=== PATIENT | female | born 1960 | race Caucasian/White ===

== ENCOUNTER 2019-08-17 16:21 | Inpatient (IN) ==
[2019-08-17 16:49] LABS: BASO# 0.01 X1000 (0.0-0.2); BASO% 0.1 % (0.0-0.8); EOS# 0.15 X1000 (0.0-0.7); EOS% 1.5 % (0.0-10.0); HEMOGLOBIN 10.1 g/dL (12.0-16.0); IMM GRAN# 0.08 X1000 (0.0-0.04); IMM GRAN% 0.8 % (0.0-0.5); LYMPH# 1.38 X1000 (1.2-3.4); LYMPH% 13.4 % (20.5-51.1); MCHC 33.7 g/dL (33-37); MONO# 0.72 X1000 (0.11-0.59); MPV 9.6 FL (7.4-10.4); NEUT# 7.96 X1000 (1.4-6.5); NEUT% 77.2 % (42.2-75.2); PLT 299 X1000 (130-400); RBC 3.26 XMIL (4.2-5.4); RDW 11.7 % (11.5-14.5)
--- NOTE | 2019-08-17 17:00 | Diag Imaging Result Doc PS360 ---
CHEST-2 VIEWS - 08/17/2019 INDICATION: chest pain COMPARISON: None FINDINGS: There is dense infiltrate in the right lower lobe. There is probably also some patchy infiltrate in the left lower lobe. Heart size is normal. Pulmonary vascularity is normal. No pneumothorax or pleural effusion. IMPRESSION: Bilateral basilar infiltrates compatible with bronchopneumonia. Electronically signed by Miguel Angel Contreras 08/17/2019 4:58 PM
[2019-08-17 17:05] LABS: INR 1.18; PROTIME 15.2 Seconds (11.0-16.0); PTT 41.5 Seconds (22.3-41.8)
[2019-08-17 17:12] LABS: AGAP 16; ALB/GLOB RATIO 0.9; ALBUMIN 3.6 g/dL (3.5-5.0); ALKALINE PHOSPHATASE 159 U/L (32-104); BUN 8 mg/dL (8-22); CALCIUM 9.5 mg/dL (8.8-10.2); CHLORIDE 95 mmol/L (98-107); CK PROFILE 45 U/L (24-173); COSMO 268; CREATININE 0.8 mg/dL (0.5-0.9); ESTIMATED GFR > 60; GLUCOSE 153 mg/dL (70-104); GOT 35 U/L (10-30); GPT 28 U/L (10-36); POTASSIUM 3.1 mmol/L (3.5-5.1); SODIUM 133 mmol/L (136-145); TCO2 22 mmol/L (25-35); TOTAL BILIRUBIN 0.57 mg/dL (0.20-1.00); TOTAL PROTEIN 7.6 g/dL (6.3-8.3)
--- NOTE | 2019-08-17 18:23 | ED EKG INTERP ---
This chart was entered by Lawrence Arizmendi Scribe, acting as scribe for Beatriz Mclaughlin MD. EKG Interpretation - EKG Time of EKG reading by physician:: 16:42 EKG Read and Signed by:: Beatriz Mclaughlin EKG Interpretation (*Must complete 3 of following elements*): Normal Rate: 103 Rhythm: sinus tachycardia [place]: normal QRS: normal NH Interval: normal ST Wave: normal Attestation - Physician/ JOVANNA Attestation Patient care was provided by Advanced Practice Provider:: No The physician spent face to face time with patient:: Yes Advanced Practice Provider documentation review:: Supervising physician onsite a nd consulted in the evaluation and care of this patient. The physician did have a face to face encounter with the patient. This chart was documented by the indicated scribe, (Lawrence Arizmendi Scribe) and accurately reflects the services I performed and decisions made by me, Beatriz Mclaughlin MD, as attested by the provider's signature.
[2019-08-17] MEDS ORDERED: ATROVENT NEB INH ONE (18:45)
--- NOTE | 2019-08-17 18:58 | PROVIDER DOCUMENTATION ---
HPI-Respiratory General - General Chief Complaint: Shortness of Breath Stated Complaint: SOB Time Seen by Provider: 08/17/19 18:10 Source: patient - History of Present Illness-Resp Nature of Presenting Problem: 59 yr old F, hx of COPD, presenting after failed outpatient treatment for pneumonia. The pt was recently seen at an outside hospital for SOB and chest pain, and ultimately determined to have right lobe pneumonia. The pt was offered inpatient admission at that hospital, but left AMA due to not being able to smoke. Accompanying discharge paperwork from that hospital show an elevated D- dimer, and subsequent CTA-PE negative for PE but confirming pneumonia. Pt received Rocephin 2 gm and was sent out with Zithromycin 250 mg x 4 days. She presents today because her pleuritic chest pain, and shortness of breath, are worsening. She reports a non-productive shallow cough - she is unable to cough deeper because her chest hurts. Quality of Pain: reports: sharp Severity in ED: reports: moderate Onset/Duration: reports: 3 days ago Timing: reports: still present, getting worse Cough Quality/Degree: reports: moderate, dry cough Modifying Factors: improves with: nothing Associated Symptoms: reports: chest pain/soreness, cough Similar Symptoms Previously?: Yes Recently seen or treated by another doctor?: Yes (treated at an outside facility) Review of Systems - Adult - REVIEW OF SYSTEMS - ADULT Constitutional: reports: no symptoms reported Eyes: reports: no symptoms reported Ears, Nose, Mouth & Throat: reports: no symptoms reported Respiratory: reports: cough, pleurisy, shortness of breath Gastrointestinal: reports: no symptoms reported Genitourinary: reports: no symptoms reported Musculoskeletal: reports: no symptoms reported Neurological: reports: no symptoms reported Past History - Adult - PAST MEDICAL HISTORY-ADULT Review of Records: reports: Nursing Assessment Review Major Childhood Illnesses: reports: denies history Respiratory: reports: COPD Physical Exam-General - PHYSICAL EXAM-ADULT Initial Vital Signs Reviewed: Yes - CONSTITUTIONAL General Appearance: alert, mild distress - EYES Eyes: PERRL/EOMI - HEAD, EARS, NOSE, MOUTH & THROAT HENMT: normocephalic/atraumatic, moist mucous membranes - RESPIRATORY Respiratory: wheezing, other (pleuritic chest pain, chest tender to palpation) - CARDIOVASCULAR Cardiovascular: regular rate, rhythm - GASTROINTESTINAL (ABDOMEN) Abdominal Exam: normal bowel sounds, non tender - SKIN Integumentary: warm/dry - NEUROLOGIC Neurologic: grossly normal - PSYCHIATRIC Psych/Mental Status: oriented x 3, anxious Progress - PLAN OF CARE/RESULTS Progress/Plan/Lab Results: Vital Signs - 8 hr 08/17/19 16:25 08/17/19 18:46 08/17/19 19:05 Temperature 97.6 F Pulse Rate 112 H 98 H 87 Respiratory Rate 22 18 16 Blood Pressure 119/74 132/82 O2 Sat by Pulse Oximetry 93 L Laboratory Results - last 24 hr 08/17/19 08/17/19 08/17/19 16:30 16:30 16:30 WBC 10.30 RBC 3.26 L Hgb 10.1 L Hct 30.0 L MCV 92.0 MCH 31.0 MCHC 33.7 RDW Std Deviation 11.7 Plt Count 299 MPV 9.6 Immature Gran % (Auto) 0.8 H Neut % (Auto) 77.2 H Lymph % (Auto) 13.4 L [place] % (Auto) 7.0 Eos % (Auto) 1.5 Baso % (Auto) 0.1 Immature Gran # (Auto) 0.08 H Neut # (Auto) 7.96 H Lymph # (Auto) 1.38 [place] # (Auto) 0.72 H Eos # (Auto) 0.15 Baso # (Auto) 0.01 PT INR PTT (Actin FS) Sodium 133 L Potassium 3.1 L Chloride 95 L Carbon Dioxide 22 L Anion Gap 16 BUN 8 Creatinine 0.8 Estimated GFR/1.73 m2 > 60 BUN/Creatinine Ratio 10 Glucose 153 H Calculated Osmolality 268 Calcium 9.5 Total Bilirubin 0.57 AST 35 H ALT 28 Alkaline Phosphatase 159 H Creatine Kinase 45 Troponin T Bml-O-Settzmalpdz Pept 269 H Total Protein 7.6 Albumin 3.6 Globulin 4.0 Albumin/Globulin Ratio 0.9 08/17/19 08/17/19 16:30 16:30 WBC RBC Hgb Hct MCV MCH MCHC RDW Std Deviation Plt Count MPV Immature Gran % (Auto) Neut % (Auto) Lymph % (Auto) [place] % (Auto) Eos % (Auto) Baso % (Auto) Immature Gran # (Auto) Neut # (Auto) Lymph # (Auto) [place] # (Auto) Eos # (Auto) Baso # (Auto) PT 15.2 INR 1.18 PTT (Actin FS) 41.5 Sodium Potassium Chloride Carbon Dioxide Anion Gap BUN Creatinine Estimated GFR/1.73 m2 BUN/Creatinine Ratio Glucose Calculated Osmolality Calcium Total Bilirubin AST ALT Alkaline Phosphatase Creatine Kinase Troponin T < 0.010 Las-M-Lgopazyipwb Pept Total Protein Albumin Globulin Albumin/Globulin Ratio Orders Category Date Time Status Admit - [facility] Routine AdmDCTranf 08/17/19 20:30 Active Activity - Up with Assistance ORDERED Care 08/17/19 20:30 Active Cardiac Monitoring DIRECTED Care 08/17/19 16:34 Active DVT/PE Risk Assess/Protocol [QM] ORDERED Care 08/17/19 20:30 Active Intake and Output-Strict ORDERED Care 08/17/19 20:30 Active Notify MD if DIRECTED Care 08/17/19 20:31 Active Saline Loc NOW Care 08/17/19 16:34 Active Vital Signs Order Q4H Care 08/17/19 20:30 Active Z-Document. for Tele Applied ORDERED Care 08/17/19 20:31 Active Regular Diet Diet 08/17/19 20:31 Active CHEST-2 VIEWS [RAD] Stat Exams 08/17/19 16:34 Completed BLOOD CULTURE [BLDCUL] Routine Lab 08/18/19 06:00 Uncollected BMP [BASIC METABOLIC PANEL] [CHEM] Routine Lab 08/18/19 06:00 Uncollected CBC WITH DIFF [HEME] Routine Lab 08/18/19 06:00 Ordered CBC WITH ELECTRONIC DIFF [HEME] Stat Lab 08/17/19 16:30 Completed CK PROFILE [SP CHEM] Stat Lab 08/17/19 16:30 Completed COMPREHENSIVE METABOLIC PANEL [CHEM] Stat Lab 08/17/19 16:30 Completed LEGIONELLA AG URINE [FORT POLK] Routine Lab 08/17/19 19:59 Received PRO B-NATRIURETIC PEPTIDE Stat Lab 08/17/19 16:30 Completed PROTIME WITH INR [COAG] Stat Lab 08/17/19 16:30 Completed PTT [COAG] Stat Lab 08/17/19 16:30 Completed SPUTUM CULTURE WITH GRAM STAIN [RM] Stat Lab 08/17/19 19:51 Uncollected STREP PNEUMO AG URINE [FORT POLK] Routine Lab 08/17/19 19:59 Received TROPONIN T Stat Lab 08/17/19 16:30 Completed URINE DRUG SCREEN Routine Lab 08/17/19 19:51 Received 0.9% Sodium Chloride Inj [Ns] 1,000 ml Med 08/17/19 21:00 Active IV 75 mls/hr 0.9% Sodium Chloride Inj [Ns] 1,000 ml Med 08/17/19 19:07 Discontinued IV 999 mls/hr Acetaminophen [Tylenol] Med 08/17/19 20:29 Ordered 650 mg PO Q6H PRN PRN Acetylcysteine 20% [Mucomyst 20%] Med 08/17/19 21:00 Ordered 3 ml INH BID Albuterol 2.5MG/Ipratrop 0.5MG [Duoneb (A & A)] Med 08/17/19 23:30 Active 3 ml INH RTQ4H.WA Azithromycin [Zithromax] Med 08/17/19 20:00 Active 500 mg PO DAILY CefTRIAXONE [Rocephin] 1 gm Med 08/17/19 20:00 Active 0.9% Sodium Chloride Inj [Ns] 50 ml IV Q24H Diazepam [Valium] Med 08/17/19 21:00 Active 5 mg PO BID Enoxaparin [Lovenox] Med 08/17/19 20:30 Active 40 mg SUBQ Q24H Ipratropium [place] Neb [Atrovent Neb] Med 08/17/19 18:45 Discontinued 0.5 mg INH NOW ONE Ketorolac [Toradol] Med 08/17/19 19:07 Discontinued 60 mg IM NOW ONE Lidocaine 5% Patch [Lidoderm] Med 08/17/19 20:30 Discontinued 1 each TOP NOW ONE Nicotine Patch [Nicoderm Patch] Med 08/17/19 20:00 Active 21 mg TD DAILY Potassium Chloride E.r. [Klor-Con] Med 08/17/19 20:00 Active 40 meq PO Q4H Quetiapine [Seroquel] Med 08/17/19 21:00 Ordered 300 mg PO QHS Aerosol Treatments Routine Oth 08/17/19 18:47 Completed Aerosol Treatments Routine Oth 08/17/19 19:53 Active Aerosol Treatments Stat Oth 08/17/19 18:47 Completed Aerosol Treatments Stat Oth 08/17/19 19:53 Active CP/SOB/Palp >45 yrs of Age Stat Oth 08/17/19 16:33 Ordered Telemetry [OM.EQ] Routine Oth 08/17/19 20:30 Active EKG [EKG] Stat Ther 08/17/19 16:34 Ordered Pt to be admitted given failed outpatient treatment. She was made aware of the plan, and agrees. Result Diagrams: 08/17/19 16:30 08/17/19 16:30 - XRAY 1 XRAY Study: Chest Impression: See EMR Report XRAY Interpretation: bilateral infiltrates, pneumonia - CONSULTS/PCP/HOSPITALIST Notification #1 *Consult/PCP/Hospitalist*: Dr. Lopez Time Discussed: 19:50 Consult Disposition: Admit Departure - Departure Date of Disposition Decision: 08/17/19 Time of Disposition Decision: 19:51 DIAGNOSIS: Pneumonia Disposition: ADMITTED INPATIENT 09 Certified Medical Emergency: Emergent Condition: Fair Referrals and Follow-Ups: None,PCP [Primary Care Provider] - - Critical Care Note This patient required my direct & personal management of CC.: No Attestation - Physician/ JOVANNA Attestation Patient care was provided by Advanced Practice Provider:: No The physician spent face to face time with patient:: Yes Advanced Practice Provider documentation review:: Supervising physician onsite and consulted in the evaluation and care of this patient. The physician did have a face to face encounter with the patient.
[2019-08-17] MEDS ORDERED: NS 1,000 ML IV ONE (19:07)
[2019-08-17] MEDS ORDERED: TORADOL IM ONE (19:07)
[2019-08-17] MEDS ORDERED: ZITHROMAX PO SCH (20:00)
[2019-08-17] MEDS ORDERED: LIDODERM TOP ONE (20:30)
[2019-08-17] MEDS: LOVENOX SUBQ SCH (20:30)
[2019-08-17] MEDS ORDERED: NS 1,000 ML IV SCH (21:00)
[2019-08-17] MEDS: ROCEPHIN 1 GM in NS 50 ML IV SCH (21:07)
[2019-08-17] MEDS: KLOR-CON PO SCH (21:07)
[2019-08-17] MEDS: VALIUM PO SCH (21:08)
[2019-08-17 21:11] LABS: UR AMPHETAMINES QUAL PRESUMPTIVE POSITIVE (NONE DETECT); UR BARBITUATES QUAL NONE DETECTED (NONE DETECT); UR BENZODIAZEPIN QUAL PRESUMPTIVE POSITIVE (NONE DETECT); UR CANNABINOIDS QUAL PRESUMPTIVE POSITIVE (NONE DETECT); UR COCAINE QUAL PRESUMPTIVE POSITIVE (NONE DETECT); UR METHADONE QUAL NONE DETECTED (NONE DETECT); UR OPIATES QUAL NONE DETECTED (NONE DETECT); UR OXYCODONE QUAL NONE DETECTED (NONE DETECT); UR PCP QUAL NONE DETECTED (NONE DETECT)
[2019-08-17] MEDS: NICODERM PATCH TD SCH (22:12)
--- NOTE | 2019-08-17 22:21 | HISTORY AND PHYSICAL ---
CHIEF COMPLAINT: Shortness of breath, pleuritic chest pain of 7 days duration. HISTORY PRESENT ILLNESS: Ms Boyer is a 59-year-old lady with past medical history of panic attacks, recreational substance use, active tobacco abuse who comes in with chief complaints of bilateral rib cage pain exacerbated during deep inspiration associated with shortness of breath of about 7 days duration. Apparently patient started having these symptoms about 5 days ago. She usually smokes 1 pack a day and has a productive sputum on a daily basis. However 5 days prior to current hospital presentation she had started experiencing shortness of breath and pleuritic chest pain bilateral rib cage region. With these complaints she went to the emergency room in other hospital where she was found to have elevated D-dimer so a chest x-ray and chest CT pulmonary embolism protocol were performed. She was diagnosed with especially right lower lobe bronchopneumonia and she was advised to be admitted inside the hospital for IV antibiotics. However they did not allow her to smoke so she had left against medical advice. Since then she was taking oral azithromycin as per report given to me by the patient. However her symptoms did not get better so she decided to come to this hospital. In the emergency room she was found to have tachycardia and chest x-ray suggestive of bilateral bronchopneumonia so considering she failed outpatient oral antibiotic therapy hospitalist team was requested to admit the patient. At the time of my evaluation she appears to be hemodynamically stable. She is not coughing but complaining of pleuritic chest pain. She also mentioned feelings of chills since last 7 days and feeling febrile so she did not measure her temperature. REVIEW OF SYSTEMS: Positive for headache, positive for pleuritic chest pain, positive for nausea, positive for cough nonproductive, positive for anxiety. PAST MEDICAL HISTORY: 1. Panic attacks. 2. Posttraumatic stress disorder. 3. Anxiety. PAST SURGICAL HISTORY: 1. Pelvic cancer in 2006 status post hysterectomy. 2. Appendix removal in 1977. FAMILY HISTORY: Mother had breast cancer and diabetes. Father had likely leukemia. CURRENT MEDICATION: The medication list is yet to be updated however she says that she takes Seroquel 300 mg at nighttime, Valium 5 mg b.i.d., buspirone 15 mg daily, Effexor she does not remember the dose of. ALLERGIES: She does not have any medication allergy. SOCIAL HISTORY: Active tobacco smoker of 1 pack a day using cigarettes since she was 12 years of age. Active smoking of marijuana every day. Once a while smoking crack the last consumption was about a week ago. No alcohol. Currently vitals she is afebrile, pulse on presentation was 113 which is now 95 on my evaluation, her saturation was 93% on room air. She is normotensive with blood pressure 130/82. PHYSICAL EXAMINATION: Not in any acute distress, anxious-appearing lady. Oral cavity is moist. She has bilateral end-expiratory wheezes and inspiratory crackles bilateral infrascapular region. She also has decreased air entry and breath sounds bilaterally. S1, S2 normal. No murmur, rub or gallop. ABDOMEN: Soft. Tenderness in right lower ribcage region. Active bowel sound. No lower extremity edema. She is alert, oriented x3. She is using all extremities spontaneously LABS: Suggestive of hemoglobin of 10.1, platelet of 299,000, hyponatremia, hypochloremia, hypokalemia, her troponin was negative. Microbiology. No data. IMAGING: Chest x-ray had bilateral basilar infiltrates compatible with bronchopneumonia. EKG had sinus tachycardia. QTc was less than 500. ASSESSMENT AND PLAN: 1. Bilateral community-acquired pneumonia status post failed outpatient antibiotic therapy. 2. Active tobacco abuse. 3. Active recreational substance abuse. 4. Likely chronic obstructive pulmonary disease which would need outpatient pulmonology evaluation and lung function test. 5. Posttraumatic stress disorder and anxiety. 6. Hyponatremia, hypochloremia and hypokalemia. PLAN: I will start patient on albuterol ipratropium nebulization, intravenous ceftriaxone, azithromycin, antibiotics and will follow up with sputum culture, blood culture and urine Streptococcus and Legionella antigen. She was counseled about stopping tobacco and recreational substance use and I will give her nicotine patch. Her medication reconciliation is pending and I would resume her anxiety and posttraumatic stress disorder medications. I will follow up with basic metabolic panel to follow up with her electrolytes. Her CT pulmonary embolism protocol CAT scan was negative at an outside hospital 3 days prior to presentation. I will keep her on enoxaparin for DVT prophylaxis. I will admit her in telemetry unit on medical floor. Plan of care discussed with patient and her multiple family members. Their questions have been satisfactorily answered. cc: Jn Lopez MD
[2019-08-17] MEDS: DUONEB (A & A) INH SCH (23:06)
[2019-08-17] MEDS: MUCOMYST 20% INH SCH (23:07)
[2019-08-17] MEDS: SEROQUEL PO SCH (23:52)
[2019-08-18] MEDS: KLOR-CON PO SCH
[2019-08-18] MEDS ORDERED: MOTRIN PO PRN (01:31)
[2019-08-18] MEDS: EFFEXOR XR PO SCH ×2 (03:45→21:04)
[2019-08-18 08:15] LABS: BASO# 0.01 X1000 (0.0-0.2); BASO% 0.2 % (0.0-0.8); EOS# 0.17 X1000 (0.0-0.7); EOS% 3.3 % (0.0-10.0); HEMATOCRIT 27.6 % (37.0-47.0); HEMOGLOBIN 9.2 g/dL (12.0-16.0); IMM GRAN# 0.04 X1000 (0.0-0.04); IMM GRAN% 0.8 % (0.0-0.5); LYMPH# 1.46 X1000 (1.2-3.4); LYMPH% 28.5 % (20.5-51.1); MCH 31.4 PG (27-31); MCHC 33.3 g/dL (33-37); MCV 94.2 FL (81-99); MONO# 0.45 X1000 (0.11-0.59); MONO% 8.8 % (1.7-9.3); MPV 9.7 FL (7.4-10.4); NEUT% 58.4 % (42.2-75.2); PLT 259 X1000 (130-400); RBC 2.93 XMIL (4.2-5.4); RDW 11.9 % (11.5-14.5); WBC 5.13 X1000 (4.8-10.8)
[2019-08-18] MEDS: MUCOMYST 20% INH SCH ×2 (08:26→20:01)
[2019-08-18] MEDS: DUONEB (A & A) INH SCH ×5 (08:26→23:37)
[2019-08-18] MEDS: VALIUM PO SCH ×2 (09:57→21:04)
[2019-08-18] MEDS: TYLENOL PO PRN (09:57)
[2019-08-18] MEDS: NICODERM PATCH TD SCH (09:57)
[2019-08-18 11:29] LABS: AGAP 14; BUN 8 mg/dL (8-22); CHLORIDE 105 mmol/L (98-107); COSMO 280; CREATININE 0.7 mg/dL (0.5-0.9); ESTIMATED GFR > 60; GLUCOSE 133 mg/dL (70-104); POTASSIUM 4.1 mmol/L (3.5-5.1); SODIUM 140 mmol/L (136-145); TCO2 21 mmol/L (25-35)
[2019-08-18] MEDS: SOLU-MEDROL IV SCH ×2 (12:46→21:05)
[2019-08-18] MEDS: ULTRAM PO PRN ×2 (12:46→21:12)
--- NOTE | 2019-08-18 14:06 | PROGRESS NOTE ---
DATE: 08/18/2019 SUBJECTIVE: This patient feels a little bit better compared with admission, but she is still complaining of shortness of breath and she has generalized wheezing, cough, hyponatremia and hypokalemia resolved, as well as hypochloremia. OBJECTIVE: Vital Signs: Temperature 98.3 degrees, pulse 98, respiratory rate 24, blood pressure 105/68, oxygen saturation 97% on room air. HEENT: Head normocephalic, no trauma. PERRLA. Neck: Supple. No JVD. No masses. Central trachea. Chest: Decreased breath sounds globally with prolonged expiratory phase and expiratory wheezing, bilateral crepitus. Abdomen: Soft, nontender, nondistended. No hepatosplenomegaly. Extremities: No edema, no clubbing, no cyanosis. Neurological examination: The patient is alert. She is oriented x3. No focal deficits. LABORATORY: WBC 5.1, hemoglobin 9.2, hematocrit 27.6, platelets 259. Sodium 140, potassium 4.1, chloride 105, bicarbonate 21. BUN 8, creatinine 0.7, glucose 133, calcium 9. ASSESSMENT AND PLAN: 1. Bilateral lower lobe community-acquired pneumonia, status post failed outpatient treatment. This patient has been placed on intravenous antibiotics, ceftriaxone and azithromycin, which I will continue. She has a long history of tobacco abuse since the age of 12, and she is smoking around 1 1-1/2 packs a day. We will continue with breathing treatment and oxygen as needed. 2. Active tobacco abuse. This patient has been advised against tobacco use. I will continue with daily cessation education. 3. Chronic obstructive pulmonary disease exacerbation. This patient is wheezing bilaterally and she does have prolonged expiratory phase. As per the patient she has been wheezing on and off. Given her history of tobacco abuse, likely this patient has chronic obstructive pulmonary disease. I will start her on steroids and I will continue with the rest of the treatment. 4. Active recreational drug abuse. As per the patient, she will stop doing cocaine and the rest of the drugs. I will continue with daily cessation education. 5. Posttraumatic stress disorder and anxiety. Aware. 6. Hyponatremia, hypokalemia and hypochloremia. Resolved. cc: Gerry Zee MD
[2019-08-18] MEDS: SEROQUEL PO SCH (21:03)
[2019-08-18] MEDS: ZITHROMAX PO SCH (21:04)
[2019-08-18] MEDS: LOVENOX SUBQ SCH (21:05)
[2019-08-18] MEDS: ROCEPHIN 1 GM in NS 50 ML IV SCH (21:05)
[2019-08-19] MEDS: DUONEB (A & A) INH SCH ×5 (01:25→19:32)
[2019-08-19] MEDS: ULTRAM PO PRN ×3 (01:38→20:15)
[2019-08-19] MEDS: SOLU-MEDROL IV SCH ×2 (04:22→16:03)
[2019-08-19 07:56] LABS: HEMATOCRIT 28.2 % (37.0-47.0); HEMOGLOBIN 9.2 g/dL (12.0-16.0); IMM GRAN# 0.03 X1000 (0.0-0.04); IMM GRAN% 0.5 % (0.0-0.5); LYMPH# 0.86 X1000 (1.2-3.4); LYMPH% 14.3 % (20.5-51.1); MCH 30.8 PG (27-31); MCHC 32.6 g/dL (33-37); MCV 94.3 FL (81-99); MONO# 0.21 X1000 (0.11-0.59); MONO% 3.5 % (1.7-9.3); MPV 9.7 FL (7.4-10.4); NEUT% 81.7 % (42.2-75.2); PLT 322 X1000 (130-400); RBC 2.99 XMIL (4.2-5.4); RDW 12.1 % (11.5-14.5)
[2019-08-19] MEDS: VALIUM PO SCH ×2 (08:17→20:16)
[2019-08-19] MEDS: NICODERM PATCH TD SCH (08:17)
[2019-08-19] MEDS: MUCOMYST 20% INH SCH ×2 (08:22→19:34)
[2019-08-19 08:29] LABS: AGAP 14; BUN 11 mg/dL (8-22); CALCIUM 9.3 mg/dL (8.8-10.2); CHLORIDE 105 mmol/L (98-107); COSMO 287; CREATININE 0.7 mg/dL (0.5-0.9); ESTIMATED GFR > 60; GLUCOSE 283 mg/dL (70-104); POTASSIUM 4.6 mmol/L (3.5-5.1); SODIUM 139 mmol/L (136-145); TCO2 20 mmol/L (25-35)
[2019-08-19] MEDS: HUMULIN R SUBQ SCH ×3 (13:21→20:25)
--- NOTE | 2019-08-19 13:45 | PROGRESS NOTE ---
DATE: 08/19/2019 SUBJECTIVE: She seems to be better compared with yesterday. She is still short of breath. She still has some wheezing. I will decrease the dose of the steroids, she is no longer hyponatremic, hypokalemic, and hypochloremic, her elevated blood sugar likely is due to steroids, but I will check a hemoglobin A1c to rule out diabetes. OBJECTIVE: Vital Signs: Temperature 97.7 degrees, pulse 99, respiratory rate 20, blood pressure 101/50, oxygen saturation 92 on room air. HEENT: Head normocephalic, no trauma, PERRLA. Neck: Supple. No JVD. No masses. Central trachea. Chest: Decreased breath sounds globally with prolonged expiratory phase and expiratory wheezing, some small scattered crepitus bilaterally at the bases. Abdomen: Soft, nontender, nondistended. No hepatosplenomegaly. Extremities: No edema, no clubbing, no cyanosis. Neurological: The patient is alert. She is oriented x3. No focal deficits. No signs of withdrawal. LABORATORY: WBC 6, hemoglobin 9.2, hematocrit 28.2, platelets 222,000, sodium 139, potassium 4.6, chloride 105, bicarbonate 20, BUN 11, creatinine 0.7, glucose 283, calcium 9.3. ASSESSMENT AND PLAN: 1. Bilateral lower lobe pneumonia, community acquired, status post failed outpatient treatment. She has been placed on IV antibiotics, ceftriaxone and azithromycin, she seems to be doing much better. She has a long history of tobacco abuse since the age of 12, and she is smoking around 1-1/2 packs a day. We will continue with breathing treatment oxygen supplementation as well. 2. Chronic obstructive pulmonary disease exacerbation. I have decreased the dose of the steroids. She is doing better. Continue with same management. She will need to follow up with Pulmonary Department as an outpatient. She will need a PFT done. 3. Active tobacco abuse. This patient has been highly advised against tobacco use and I will continue with daily cessation education. 4. Active recreational drug abuse, as per the patient she will stop doing cocaine and the rest of the drugs. I will continue with daily cessation education as well. As per the patient, she already stopped doing that. 5. PTSD, aware. 6. Hyponatremia, hypokalemia, hypochloremia, resolved. 7. Disposition: Overall, this patient is doing much better. I do believe she can be discharged in the next 24 to 48 hours, she will need to be discharged with p.o. steroids, tramadol has been working good for her and her pain, she will need to go with breathing treatment and home antibiotics. cc: Gerry Zee MD
[2019-08-19] MEDS ORDERED: VALIUM PO ONE (13:48)
[2019-08-19] MEDS: ZITHROMAX PO SCH (20:15)
[2019-08-19] MEDS: SEROQUEL PO SCH (20:15)
[2019-08-19] MEDS: EFFEXOR XR PO SCH (20:16)
[2019-08-19] MEDS: LOVENOX SUBQ SCH (20:16)
[2019-08-19] MEDS: ROCEPHIN 1 GM in NS 50 ML IV SCH (20:16)
[2019-08-20] MEDS: DUONEB (A & A) INH SCH ×3 (00:11→12:04)
[2019-08-20] MEDS: SOLU-MEDROL IV SCH ×2 (04:50→15:48)
[2019-08-20] MEDS: ULTRAM PO PRN ×2 (05:55→12:43)
[2019-08-20] MEDS: HUMULIN R SUBQ SCH ×2 (06:38→11:26)
[2019-08-20 07:49] LABS: HEMOGLOBIN A1C 5.7 % (4.8-6.0)
[2019-08-20 07:58] LABS: AGAP 13; BUN 16 mg/dL (8-22); CALCIUM 9.3 mg/dL (8.8-10.2); CHLORIDE 104 mmol/L (98-107); COSMO 282; CREATININE 0.6 mg/dL (0.5-0.9); ESTIMATED GFR > 60; GLUCOSE 185 mg/dL (70-104); POTASSIUM 4.1 mmol/L (3.5-5.1); SODIUM 138 mmol/L (136-145); TCO2 21 mmol/L (25-35)
[2019-08-20] MEDS: MUCOMYST 20% INH SCH (08:12)
[2019-08-20] MEDS: VALIUM PO SCH (08:53)
[2019-08-20] MEDS: NICODERM PATCH TD SCH (08:53)
[2019-08-20] MEDS: TYLENOL PO PRN (10:41)
[2019-08-20 12:24] VITALS: BP 140/90
--- NOTE | 2019-08-21 11:51 | DISCHARGE SUMMARY ---
ADMISSION DATE: 08/18/2019 DISCHARGE DATE: 08/20/2019 DISCHARGE DISPOSITION: Home. DISCHARGE CONDITION: Hemodynamically stable. She is breathing well on room air. DISCHARGE DIAGNOSES: 1. Bilateral community-acquired pneumonia due to Streptococcus pneumonia. 2. Acute likely COPD exacerbation. 3. Active tobacco abuse. 4. Active recreational substance abuse. 5. Steroid induced hyperglycemia. 6. Hyponatremia. 7. Hypochloremia. 8. Hypokalemia. OTHER DIAGNOSES: 1. History of posttraumatic stress disorder. 2. History of anxiety. 3. History of multiple recreational substance including tobacco abuse. 4. History of pelvic cancer in 2006, status post hysterectomy. DISCHARGE MEDICATION: Buspirone 50 mg at nighttime, venlafaxine 37.5 mg at nighttime, nabumetone 500 mg b.i.d., diazepam 5 mg b.i.d., cefuroxime 500 mg b.i.d. for 4 days, prednisone 10 mg tablet, take 40 mg for 3 days, 30 mg for 3 days, 10 mg for 3 days. Quetiapine 200 mg at nighttime, tramadol 50 mg every 6 hours, 10 tablets have been prescribed. VITALS: At the time of discharge, temperature 97.8 degrees, pulse 87, respiratory 20, blood pressure 140/90, saturating 97% on room air. PHYSICAL EXAMINATION: General: Does not appear in acute distress. Oral cavity is moist. Lungs: Air entry bilaterally equal. No wheeze, rhonchi, or crackles. Cardiovascular: S1, S2 normal. No murmur or gallop. Abdomen: Soft, nontender. Extremity: No lower extremity edema. Neurological: She is alert and oriented x3. She does have mild end-expiratory wheezes. LABS: During hospital admission discharge[place] [address] on her admission which improved to 6000 at the time of discharge, hemoglobin 9.2, platelet 322,000. BUN of 16, creatinine 0.6, potassium 4.1, blood sugar 179. Her urine toxicology was positive for amphetamine, benzodiazepine, cocaine, and cannabinoids. Urine streptococcal antigen was positive. Microbiology blood culture did not have any growth. IMAGING DURING HOSPITALIZATION: Chest x-ray on admission had bilateral basilar infiltrates compatible with bronchopneumonia. EKG on admission had sinus tachycardia. HOSPITAL COURSE SUMMARY: Ms. Boyer is a 59-year-old lady who presented on 08/18/2019 with chief complaint of shortness of breath and pleuritic chest pain of about 7 days duration. Apparently, she had seen and had gone to an outside hospital emergency room, and there she was diagnosed with pneumonia. At that time, her D-dimer was elevated and a CAT scan was performed which had ruled out pulmonary embolism, but had detected pneumonia. She was advised to remain inside the hospital for IV antibiotics. However, she left against medical advice and she was given prescription of oral erythromycin, which she was taking, which did not help, and her shortness of breath worsened so she came to [facility] Emergency Room. In the Emergency Room, she was detected to have bilateral lung infiltrate. The hospitalist team was consulted for further management. She was treated with intravenous ceftriaxone and azithromycin. Later on, streptococcal antigen came positive and it was changed to cefuroxime at the time of discharge. She was also treated with intravenous steroids for acute chronic obstructive pulmonary disease exacerbation as she was wheezing, following which she was feeling better. At the time of discharge. She was provided detailed discharge instructions about taking her antibiotics and steroids and establishing care with a lung doctor. All of her questions were answered. More than 30 minutes spent discharging this patient. cc: Jn Lopez MD
== END 2019-08-20 16:22 | disposition home or self-care (01) | DRG 194 ==
LOC: ED 16:21 → SUATTDRO 08-18 01:07 → 3N 08-18 01:07
PROVIDERS: ATTEND Internal Medicine